=== PATIENT | male | born 1950 | race Caucasian/White ===

== ENCOUNTER 2017-03-26 08:11 | Emergency (ER) | payer OTHER ==
[~2017-03-26] VITALS: Ht 180.3 cm; Wt 82.9 kg
[~2017-03-26 08:11] MED LIST: ADVAIR 250/501 DISK IH; ADVAIR HFA120 INHALA IH; AZITHROMYCIN500 M1 PO; DECADRON4 MG PO; LEVOFLOXACIN500 MG PO; NORCO 5/3251 TABLET PO; PREDNISONE10 MG PO; PRILOSEC20 MG PO; SPIRIVA RESPIMAT4 GM IH; SPIRIVA1 INHALATI IH
[2017-03-26] MEDS ORDERED: PERCOCET 5/31 TABLET PO (08:30)
[2017-03-26] MEDS ORDERED: FLEXERIL10 MG PO (08:30)
[2017-03-26] MEDS ORDERED: MOTRIN400 MG PO (08:30)
[2017-03-26 08:57] VITALS: BP 109/86
== END 2017-03-26 08:59 | disposition home or self-care (01) ==
LOC: EME → EDBD 08:11 → EME 08:59
DX: M54.42 Lumbago with sciatica, left side (principal); R00.0 Tachycardia, unspecified; Z87.891 Personal history of nicotine dependence
CPT/HCPCS: 99281; 99284

== ENCOUNTER → 2017-04-16 | Outpatient (CLI) | payer OTHER ==
[~2017-04-16] VITALS: Ht 177.8 cm; Wt 85.0 kg
[~2017-04-16] MED LIST changes: +FLEXERIL10 MG PO; +MOTRIN400 MG PO; +PERCOCET 5/31 TABLET PO
== END | disposition home or self-care (01) ==
LOC: AMB 04-09 09:45
DX: D12.2 Benign neoplasm of ascending colon (principal); D12.3 Benign neoplasm of transverse colon; K63.5 Polyp of colon; K59.00 Constipation, unspecified; Z87.891 Personal history of nicotine dependence; K21.9 Gastro-esophageal reflux disease without esophagitis; J44.9 Chronic obstructive pulmonary disease, unspecified; R74.8 Abnormal levels of other serum enzymes; Z92.21 Personal history of antineoplastic chemotherapy; Z85.72 Personal history of non-Hodgkin lymphomas; Z80.3 Family history of malignant neoplasm of breast; Z83.3 Family history of diabetes mellitus; Z88.0 Allergy status to penicillin; Z88.2 Allergy status to sulfonamides; Z88.6 Allergy status to analgesic agent
CPT/HCPCS: 88305; 93005; J2250; J3010

== ENCOUNTER → 2017-09-22 | Outpatient (CLI) | payer OTHER ==
[~2017-09-22] MED LIST changes: +DUEXIS 800-26.1 EACH PO; +NEURONTIN300 MG PO; +PRAVACHOL10 MG PO
[2017-09-22 07:43] LABS: HEMATOCRIT 46.6 % (38.0-50.0); HEMOGLOBIN 15.6 G/DL (12.5-16.6); MCH 28.4 PG (29.0-34.0); MCHC 33.5 G/DL (30.0-36.0); MCV 84.9 FL (86-99); PLATELET COUNT 291 K/uL (156-360); RBC DIS.WIDTH-CV 12.4 % (11.8-14.6); RBC DIS.WIDTH-SD 38.6 % (39-53); RED BLOOD COUNT 5.49 M/uL (4.00-5.50)
[2017-09-22 07:49] LABS: INTER. NORMALIZED RATIO 1.1
== END | disposition home or self-care (01) ==
LOC: OPR 07:04 → EDSTATUS 08:00 → OPR 08:00
PROVIDERS: Internal Medicine Medical Oncology
DX: C83.31 Diffuse large B-cell lymphoma, lymph nodes of head, face, and neck (principal); Z92.3 Personal history of irradiation; Z92.21 Personal history of antineoplastic chemotherapy; J44.9 Chronic obstructive pulmonary disease, unspecified; J95.811 Postprocedural pneumothorax; Z99.81 Dependence on supplemental oxygen
CPT/HCPCS: 71045; 77012; 85027; 85610; 85730; 85999; 88305; J3010

== ENCOUNTER 2017-11-14 22:58 | Inpatient (IN) | payer OTHER ==
[~2017-11-14] VITALS: Ht 154.9 cm; Wt 89.2 kg
[2017-11-14 23:47] LABS: BASOPHIL (%) 0.2 % (0-1); EOSINOPHIL (%) 0.5 % (0-5); EOSINOPHIL COUNT 0.1 K/uL (0-0.3); HEMATOCRIT 42.5 % (38.0-50.0); HEMOGLOBIN 14.6 G/DL (12.5-16.6); IMMATURE GRANULOCYTE (%) 0.6 % (0.0-0.7); LYMPHOCYTE (%) 8.3 % (15-42); LYMPHOCYTE COUNT 0.9 K/uL (1.0-2.8); MCH 28.6 PG (29.0-34.0); MCHC 34.4 G/DL (30.0-36.0); MCV 83.3 FL (86-99); MONOCYTE (%) 9.5 % (3-12); MONOCYTE COUNT 1.1 K/uL (0-0.8); NEUTROPHIL (%) 80.9 % (45-76); NEUTROPHIL COUNT 9.1 K/uL (1.8-6.4); PLATELET COUNT 234 K/uL (156-360); RBC DIS.WIDTH-SD 42.6 % (39-53); WHITE BLOOD COUNT 11.3 K/uL (4.1-10.2)
[2017-11-15] LABS: ALBUMIN 3.9 g/dL (3.2-4.8); CHLORIDE 107 mEq/L (99-109); SODIUM 137 mEq/L (136-147)
[2017-11-15 00:01] LABS: MAGNESIUM 2.1 mg/dL (1.3-2.7)
[2017-11-15 00:02] LABS: GLUCOSE 147 mg/dL (70-99)
[2017-11-15 00:04] LABS: TOTAL BILIRUBIN 0.9 mg/dL (0.0-1.0)
[2017-11-15 00:06] LABS: ALKALINE PHOSPHATASE 88 IU/L (3-129); CREATININE 0.9 mg/dL (0.6-1.3); GFR ESTIMATE (CALCULATED) > 59 mL/min/ (58.99-99999)
[2017-11-15 00:07] LABS: UREA NITROGEN (BUN) 15 mg/dL (9-23)
[2017-11-15 00:08] LABS: AST (GOT) 14 IU/L (2-34)
[2017-11-15 00:09] LABS: ALT (GPT) 15 IU/L (3-49); CREATINE KINASE 64 IU/L (1-294); TOTAL CK 64 IU/L (1-294)
[2017-11-15 00:16] LABS: CK-MB 0.6 ng/mL (0.0-4.9); CKMB RELATIVE INDEX 0.9 (0.0-3.9)
[2017-11-15 02:59] LABS: APPEARANCE CLEAR ((CLEAR)); BILIRUBIN NEGATIVE; BLOOD NEGATIVE; COLOR YELLOW ((YELLOW)); GLUCOSE (STRIP) NEGATIVE; KETONES NEGATIVE; LEUKOCYTES NEGATIVE; NITRITE NEGATIVE; PROTEIN (STRIP) NEGATIVE; SPECIFIC GRAVITY 1.024 (1.000-1.030); UCUL ADDED? NO; UROBILINOGEN 0.2 MG/DL (0.2-1.0)
[2017-11-15 05:15] VITALS: BP 111/72
[2017-11-15 08:00] VITALS: BP 113/68
[2017-11-15] MEDS ORDERED: SPIRIVA RESPIMAT4 G1 IH (12:11)
[2017-11-15] MEDS ORDERED: ADVAIR HFA120 INHALA IH (12:14)
[2017-11-15] MEDS ORDERED: NAPROSYN500 MG PO (12:15)
[2017-11-15 12:18] VITALS: BP 111/74
[2017-11-15 15:45] VITALS: BP 124/80
[2017-11-15 19:24] VITALS: BP 110/76
[2017-11-16 00:11] VITALS: BP 130/77
[2017-11-16 03:54] VITALS: BP 116/72
[2017-11-16 05:54] LABS: BASOPHIL (%) 0.3 % (0-1); EOSINOPHIL COUNT 0.1 K/uL (0-0.3); HEMATOCRIT 41.7 % (38.0-50.0); HEMOGLOBIN 13.9 G/DL (12.5-16.6); IMMATURE GRANULOCYTE (%) 0.4 % (0.0-0.7); LYMPHOCYTE (%) 14.3 % (15-42); MCH 27.9 PG (29.0-34.0); MCHC 33.3 G/DL (30.0-36.0); MCV 83.6 FL (86-99); MONOCYTE (%) 8.9 % (3-12); MONOCYTE COUNT 0.6 K/uL (0-0.8); NEUTROPHIL (%) 75.1 % (45-76); NEUTROPHIL COUNT 5.3 K/uL (1.8-6.4); PLATELET COUNT 267 K/uL (156-360); RBC DIS.WIDTH-CV 13.6 % (11.8-14.6); RBC DIS.WIDTH-SD 41.3 % (39-53); RED BLOOD COUNT 4.99 M/uL (4.00-5.50)
[2017-11-16 06:29] LABS: CHLORIDE 107 MEQ/L (99-109); CREATININE 0.8 MG/DL (0.6-1.3); GFR ESTIMATE (CALCULATED) > 59 mL/min/ (58.99-99999); GLUCOSE 127 mg/dL (70-99); POTASSIUM 4.3 MEQ/L (3.7-5.4); SODIUM 139 MEQ/L (136-147); UREA NITROGEN (BUN) 18 mg/dL (9-23)
[2017-11-16 08:06] VITALS: BP 97/66
[2017-11-16 12:51] VITALS: BP 110/66
[2017-11-16 16:18] VITALS: BP 114/45
[2017-11-16 20:00] VITALS: BP 109/73
[2017-11-17 00:26] VITALS: BP 111/74
[2017-11-17 04:00] VITALS: BP 102/67
[2017-11-17 08:01] VITALS: BP 96/62
[2017-11-17] MEDS ORDERED: PREDNISONE20 MG PO (09:04)
[2017-11-17] MEDS ORDERED: LEVAQUIN750 MG PO (09:04)
== END 2017-11-17 11:07 | disposition home or self-care (01) | DRG 193 ==
LOC: EME 22:58 → EDOF 11-15 02:04 → 5SOUTH 11-15 02:04 → ENRESERV 11-15 02:06 → 5SOUTH 11-15 05:13
PROVIDERS: Emergency Medicine; Hospitalist
DX: J18.9 Pneumonia, unspecified organism (principal); J96.01 Acute respiratory failure with hypoxia; J44.1 Chronic obstructive pulmonary disease with (acute) exacerbation; J44.0 Chronic obstructive pulmonary disease with (acute) lower respiratory infection; K21.9 Gastro-esophageal reflux disease without esophagitis; Z87.891 Personal history of nicotine dependence; Z85.72 Personal history of non-Hodgkin lymphomas; Z80.3 Family history of malignant neoplasm of breast; Z68.37 Body mass index [BMI] 37.0-37.9, adult
CPT/HCPCS: 71046; 71250; 80048; 80053; 81003; 82550; 82553; 82948; 83735; 85025; 87040; 87070; 87205; 87449; 93005; 94640; 94640 76; 94799; 99202; 99281; 99285; J1650; J1956; J7030; J7040; J7512

== ENCOUNTER 2018-01-23 06:39 | Emergency (ER) | payer OTHER ==
[~2018-01-23] VITALS: Ht 177.8 cm; Wt 88.4 kg
[~2018-01-23 06:39] MED LIST changes: +LEVAQUIN750 MG PO; +NAPROSYN500 MG PO; +PREDNISONE20 MG PO; +SPIRIVA RESPIMAT4 G1 IH
[2018-01-23 07:22] LABS: BASOPHIL (%) 0.3 % (0-1); EOSINOPHIL (%) 4.3 % (0-5); EOSINOPHIL COUNT 0.3 K/uL (0-0.3); HEMATOCRIT 37.2 % (38.0-50.0); HEMOGLOBIN 12.6 G/DL (12.5-16.6); IMMATURE GRANULOCYTE (%) 0.8 % (0.0-0.7); LYMPHOCYTE (%) 14.6 % (15-42); LYMPHOCYTE COUNT 0.9 K/uL (1.0-2.8); MCH 27.9 PG (29.0-34.0); MCHC 33.9 G/DL (30.0-36.0); MCV 82.5 FL (86-99); MONOCYTE (%) 11.6 % (3-12); MONOCYTE COUNT 0.8 K/uL (0-0.8); NEUTROPHIL (%) 68.4 % (45-76); NEUTROPHIL COUNT 4.4 K/uL (1.8-6.4); PLATELET COUNT 319 K/uL (156-360); RBC DIS.WIDTH-CV 13.2 % (11.8-14.6); RBC DIS.WIDTH-SD 40.1 % (39-53); RED BLOOD COUNT 4.51 M/uL (4.00-5.50); WHITE BLOOD COUNT 6.4 K/uL (4.1-10.2)
[2018-01-23 08:14] LABS: ALBUMIN 3.7 G/DL (3.2-4.8); CHLORIDE 102 MEQ/L (99-109); POTASSIUM 3.9 MEQ/L (3.7-5.4); SODIUM 137 MEQ/L (136-147); TOTAL BILIRUBIN 0.5 MG/DL (0.0-1.0)
[2018-01-23 08:19] LABS: TROP-I INTERPRETATION NEGATIVE; TROPONIN-I 0.02 ng/mL (0.0-0.30)
[2018-01-23 08:20] LABS: ALKALINE PHOSPHATASE 80 IU/L (3-129); ALT (GPT) 8 IU/L (3-49); AST (GOT) 13 IU/L (2-34); CREATININE 0.7 MG/DL (0.6-1.3); GFR ESTIMATE (CALCULATED) > 59 mL/min/ (58.99-99999); GLUCOSE 134 mg/dL (70-99); TOTAL PROTEIN 6.3 G/DL (6.4-8.3); UREA NITROGEN (BUN) 15 mg/dL (9-23)
[2018-01-23 11:48] VITALS: BP 106/75
== END 2018-01-23 12:37 | disposition home or self-care (01) ==
LOC: EME 06:39
PROVIDERS: Emergency Medicine
DX: J43.2 Centrilobular emphysema (principal); Z87.891 Personal history of nicotine dependence; Z85.118 Personal history of other malignant neoplasm of bronchus and lung; I10 Essential (primary) hypertension; I25.10 Atherosclerotic heart disease of native coronary artery without angina pectoris; Z88.0 Allergy status to penicillin; Z88.2 Allergy status to sulfonamides; Z88.6 Allergy status to analgesic agent
CPT/HCPCS: 71046; 71275; 80053; 84484; 85025; 85379; 93005; 94640; 94640 76; 99281; 99285; J1100

== ENCOUNTER 2018-02-22 13:00 | Emergency (ER) | payer OTHER ==
[~2018-02-22] VITALS: Ht 177.8 cm; Wt 85.5 kg
[2018-02-22] MEDS ORDERED: ULTRAM50 MG PO (13:58)
[2018-02-22 14:14] VITALS: BP 111/82
== END 2018-02-22 14:15 | disposition home or self-care (01) ==
LOC: EME 13:00
DX: M25.561 Pain in right knee (principal); M25.562 Pain in left knee; M25.461 Effusion, right knee; M25.462 Effusion, left knee; M17.0 Bilateral primary osteoarthritis of knee; R06.02 Shortness of breath; J44.9 Chronic obstructive pulmonary disease, unspecified; Z85.858 Personal history of malignant neoplasm of other endocrine glands; Z87.891 Personal history of nicotine dependence
CPT/HCPCS: 73564; 99281; 99283